=== PATIENT | female | born 1955 | race Caucasian/White ===

== ENCOUNTER → 2018-09-18 | Outpatient (CLI) | payer OTHER ==
[~2018-09-18] MED LIST: BCOIRO PO; CEPH250A; CLOM50A PO; CLON.5; CYCL10; CYCL10 PO; Cubicin500 MG/VIA IV; DIAZ10 PO; DIAZ5 PO; Daypro600 MG PO; ENOX30I; ESCI10; FENT25TP TOP; FLUO10; FLUO10 PO; FURO40 PO; HYDR1TAB94 PO; IBUP600 PO; LEVO750 PO; LORA.5 PO; MELA3 PO; META800 PO; METH10; NAPR500 PO; OXAP600 PO; OXYACE5T PO; OXYC10ER PO; OXYC5; PRED10; PROM25 PO; QUET100 PO; QUET200 PO; QUET25; QUET25 PO; QUET300 PO; RIFA300 PO; RXOXYACE PO; Seroquel300 MG PO; TRAM50 PO; VENL150ER PO; [UNRECOGNIZED DRUG - REMARK]; cefazolin
== END | disposition home or self-care (01) ==
LOC: LAB SHORT 15:51 → LAB 15:51
DX: R35.8 Other polyuria (principal)
CPT/HCPCS: 87077; 87086; 87186

== ENCOUNTER → 2019-02-10 | Outpatient (CLI) | payer OTHER ==
[2019-02-12 15:07] LABS: HPV 16 Negative (Negative); HPV 18 Negative (Negative); HPV OTHER HR TYPES Negative (Negative)
== END | disposition home or self-care (01) ==
LOC: LAB 15:40 → LAB SHORT 15:40
PROVIDERS: Obstetrics & Gynecology
DX: Z01.419 Encounter for gynecological examination (general) (routine) without abnormal findings (principal)
CPT/HCPCS: 87624; G0123

== ENCOUNTER 2021-12-25 03:05 | Day surgery (SDC) | payer OTHER | END 2021-12-25 23:11 | disposition home or self-care (01) | LOC: WOUND 03:05 | DX: M79.89 Other specified soft tissue disorders (principal); T84.59XA Infection and inflammatory reaction due to other internal joint prosthesis, initial encounter; M19.90 Unspecified osteoarthritis, unspecified site; Z87.891 Personal history of nicotine dependence; Z91.040 Latex allergy status; Z86.19 Personal history of other infectious and parasitic diseases; Z96.652 Presence of left artificial knee joint | CPT/HCPCS: G0463 ==

== ENCOUNTER → 2022-10-11 | Outpatient (CLI) | payer OTHER ==
[~2022-10-11] MED LIST changes: +BUPR150ER PO; +CELE100 PO; +IBU800 M1 PO; +KETO10 PO
[2022-10-11 17:58] LABS: BASOPHILS ABSOLUTE AUTO 0.04 K/mm3 (0.00-0.23); BASOPHILS PERCENT AUTO 1 % (0-2); EOSINOPHILS ABSOLUTE AUTO 0.16 K/mm3 (0.00-0.68); EOSINOPHILS PERCENT AUTO 2 % (0-6); Hematocrit 26.8 % (33.0-51.0); Hemoglobin 8.2 g/dL (11.5-16.0); IMMATURE GRAN ABSOLUTE AUTO 0.02 K/mm3 (0.00-0.10); IMMATURE GRAN PERCENT AUTO 0 % (0-1); LYMPHOCYTES ABSOLUTE AUTO 1.55 K/mm3 (0.84-5.20); LYMPHOCYTES PERCENT AUTO 21 % (21-46); MONOCYTES ABSOLUTE AUTO 0.52 K/mm3 (0.16-1.47); MONOCYTES PERCENT AUTO 7 % (4-13); Mean Corpuscular HGB Conc 30.6 g/dL (31.5-36.5); Mean Corpuscular Volume 88 fL (80-100); Mean Platelet Volume 11.4 fL (9.1-12.4); NEUTROPHILS PERCENT AUTO 70 % (41-73); Platelet Count 380 K/mm3 (150-400); RDW Coefficient Variation 19.1 % (11.7-14.2); RDW Standard Deviation 61.1 fL (35.1-46.3); Red Blood Cell Count 3.04 M/mm3 (3.80-5.20); White Blood Cell Count 7.49 K/mm3 (4.00-11.30)
== END | disposition home or self-care (01) ==
LOC: LAB SHORT 15:55 → LAB 15:55
PROVIDERS: Internal Medicine Gastroenterology
DX: D50.9 Iron deficiency anemia, unspecified (principal)
CPT/HCPCS: 85025

== ENCOUNTER 2023-04-17 09:02 | Day surgery (SDC) | payer MEDICARE, OTHER ==
[2023-04-17 11:40] VITALS: BP 108/63
--- NOTE | 2023-04-17 11:45 | NUR ---
04/17/23 1145 KILO ROSAS PT RIGHT WRIST IV STARTED OUT PATENT BUT POSITION DURING COLONOSCOPY AND START OF EGD; PT BEGAN MOVING AND CAUSED IV TO INFILTRATE AND WAS DC. PT GIVEN WARM PACKS TO RIGHT WRIST. IV SITE WDL AND NO C/O PAIN AT DC.
== END 2023-04-17 11:45 | disposition home or self-care (01) ==
LOC: ORSCSDS 09:02
PROVIDERS: Internal Medicine Gastroenterology
PROC: 06LY8CC Occlusion of Hemorrhoidal Plexus with Extraluminal Device, Via Natural or Artificial Opening Endoscopic (ICD-10-PCS; principal; 2023-04-17 10:00)
PROC: 0DB98ZX Excision of Duodenum, Via Natural or Artificial Opening Endoscopic, Diagnostic (ICD-10-PCS; principal; 2023-04-17 10:00)
DX: D50.9 Iron deficiency anemia, unspecified (principal); Z86.010 Personal history of colon polyps; K29.80 Duodenitis without bleeding; K21.9 Gastro-esophageal reflux disease without esophagitis; Z87.891 Personal history of nicotine dependence; F31.9 Bipolar disorder, unspecified; B19.20 Unspecified viral hepatitis C without hepatic coma; E78.5 Hyperlipidemia, unspecified; Z79.899 Other long term (current) drug therapy
CPT/HCPCS: 88305; J2704; J7120

== ENCOUNTER 2023-05-13 07:27 | Day surgery (SDC) | payer MEDICARE, OTHER ==
[~2023-05-13] VITALS: Ht 165.1 cm; Wt 73.9 kg
[2023-05-13] MEDS ORDERED: FISH OIL 1,0001 EA10 PO (08:13)
[2023-05-13 09:47] VITALS: BP 111/74
--- NOTE | 2023-05-13 10:20 | NUR ---
05/13/23 1020 Cecilia Anahi PATIENT ADVISED BY DR JORDAN TO GO TO [facility] FOR LABS TO CHECK ANEMIA TODAY. PT STATED THAT SHE DROVE HERSELF TO TODAY'S APPT AND THAT HER FRIEND YFN WOULD BE PICKING HER UP, BUT SHE WANTED TO KNOW IF SHE COULD JUST WALK DOWN TO THE LAB FOR THE LABWORK. I ADVISED HER THAT NO, YFN WOULD NEED TO PICK HER UP AND DRIVE HER DOWN THERE AND REMINDED HER THAT DUE TO TODAY'S SEDATION, SHE CANNOT DRIVE FOR 24 HOURS. WHEN I CALLED YFN TO LET HIM KNOW PATIENT WAS READY FOR TUMBLING INSTRUCTOR, I ADVISED HIM THAT PATIENT CANNOT DRIVE FOR 24 HOURS AND HE SAID HE WOULD HAVE SOMEONE TUMBLING INSTRUCTOR HER CAR. UPON COMING BACK IN TO ROOM, PATIENT EXPRESSED FRUSTRATION AND ANXIETY ABOUT [facility] POSSIBLY NOT BEING ABLE TO WAIT FOR HER TO HAVE HER LABS DRAWN AND THEN EXPRESSED ANXIETY ABOUT HOW LONG THE LAB WILL TAKE TO GET TO HER AND TO DRAW HER BLOOD. SHE ASKED IF SHE COULD HAVE LABS DRAWN IN [place] AND MAR FORDE ADVISED PATIENT SHE COULD GO TO THE [place] DRAW SITE. PATIENT ACKNOWLEDGED THIS AND THEN SAID SHE WILL JUST GO TO THE OUTPATIENT LAB [place]. MAR FORDE AND MYSELF BOTH TRIED TO REASSURE PATIENT. PATIENT TAKEN OUT TO CAR BY [facility] AND MAURISIO SPOKE TO YFN AND HE WILL TAKE PATIENT TO OUTPATIENT LAB ON THE WAY HOME.
== END 2023-05-13 10:08 | disposition home or self-care (01) ==
LOC: ORSCSDS 07:27
PROVIDERS: Internal Medicine Gastroenterology
PROC: 0DB68ZX Excision of Stomach, Via Natural or Artificial Opening Endoscopic, Diagnostic (ICD-10-PCS; principal; 2023-05-13 09:00)
PROC: 0DB58ZX Excision of Esophagus, Via Natural or Artificial Opening Endoscopic, Diagnostic (ICD-10-PCS; principal; 2023-05-13 09:00)
DX: D50.9 Iron deficiency anemia, unspecified (principal); K29.00 Acute gastritis without bleeding; K44.9 Diaphragmatic hernia without obstruction or gangrene; F41.9 Anxiety disorder, unspecified; Z87.891 Personal history of nicotine dependence; Z79.899 Other long term (current) drug therapy
CPT/HCPCS: 36415; 82728; 83540; 83550; 85025; 88305; 88312; 88313; 88342; J7120

== ENCOUNTER 2023-06-17 11:25 | Day surgery (SDC) | payer MEDICARE, OTHER ==
[~2023-06-17] VITALS: Ht 165.1 cm; Wt 73.7 kg
[~2023-06-17 11:25] MED LIST changes: +FISH OIL 1,0001 EA10 PO
[2023-06-17 12:13] VITALS: BP 129/107
--- NOTE | 2023-06-17 12:25 | NUR ---
[facility] IN TO SEE PATIENT BECAUSE PATIENT HAS RASH/OPEN SKIN ON R ANKLE WHICH IS OPERATIVE ANKLE. PER DR PERALTA CASE MUST BE CANCELLED AND RESCHEDULED D/T RISK FOR INFECTION. PATIENT INFORMED TO CALL DR PERALTA'S OFFICE TO RESCHEDULE AND ALL BELONGINGS WERE RETURNED TO HER. PATIENT VERBALIZED UNDERSTANDING AND LEFT FACILITY AT 1222.
== END 2023-06-17 12:22 | disposition home or self-care (01) ==
LOC: ORSCSDS 11:25
DX: T84.84XD Pain due to internal orthopedic prosthetic devices, implants and grafts, subsequent encounter (principal); Z53.9 Procedure and treatment not carried out, unspecified reason
CPT/HCPCS: J0171; J7120

== ENCOUNTER 2023-06-24 14:30 | Day surgery (SDC) | payer MEDICARE, OTHER ==
[~2023-06-24] VITALS: Ht 165.1 cm; Wt 72.7 kg
[2023-06-24] MEDS ORDERED: OMEP20ER PO (14:54)
[2023-06-24] MEDS ORDERED: OXYC10TA19 PO (14:56)
--- NOTE | 2023-06-24 15:14 | NUR ---
06/24/[address] CAME IN AND ASSESSED THE RIGHT ANKLE SURGICAL SITE DUE TO RASH- PT STILL HAS SOME DEMATITIS ON RIGHT ANKLE. DR PERALTA EXPLAINED THAT THE SURGERY NEEDED TO BE CANCELLED AGAIN TODAY DUE TO OP SITE NOT HEALED. PT WILL BE CONTACTED BY DR JOHNSON OFFICE TO RESCHEDULE PROCEDURE.
== END 2023-06-24 15:11 | disposition home or self-care (01) ==
LOC: ORSCSDS 14:30
DX: T84.84XD Pain due to internal orthopedic prosthetic devices, implants and grafts, subsequent encounter (principal); Z53.9 Procedure and treatment not carried out, unspecified reason
CPT/HCPCS: J0171; J2795

== ENCOUNTER 2023-07-12 09:51 | Day surgery (SDC) | payer MEDICARE, OTHER ==
[~2023-07-12] VITALS: Ht 165.1 cm; Wt 71.5 kg
[~2023-07-12 09:51] MED LIST changes: +OMEP20ER PO; +OXYC10TA19 PO
--- NOTE | 2023-07-12 11:02 | NUR ---
07/12/23 1102 Mike Quintero ROPIVACAINE 0.5% 30 MLS MIXED & VERIFIED W/ EPI 0.15ML (1MG/ML), PER ORDER, TO MAKE ROPIVACAINE 0.5% 1:200,000 FOR INJECTION AT OPSITE BY DR PERALTA.
[2023-07-12 13:17] VITALS: BP 109/67
--- NOTE | 2023-07-12 13:59 | NUR ---
07/12/23 1351 Stephen Edwards IV REMOVED INTACT. SITE WNL. PT REPORTED 4/10 PAIN UPON DISCHARGE. SHE DESCRIBED PAIN TOLERABLE AND EXPRESSED READINESS TO RETURN HOME.
== END 2023-07-12 13:57 | disposition home or self-care (01) ==
LOC: ORSCSDS 09:51
PROVIDERS: Podiatrist Foot & Ankle Surgery
PROC: 0QP104Z Removal of Internal Fixation Device from Sacrum, Open Approach (ICD-10-PCS; principal; 2023-07-12 11:00)
DX: T84.84XA Pain due to internal orthopedic prosthetic devices, implants and grafts, initial encounter (principal); M19.171 Post-traumatic osteoarthritis, right ankle and foot; Z87.891 Personal history of nicotine dependence; F41.9 Anxiety disorder, unspecified; F32.A Depression, unspecified; Z79.899 Other long term (current) drug therapy
CPT/HCPCS: A9270; J0171; J0690; J1100; J1885; J2250; J2371; J2405; J2704; J2795; J3010; J7120